=== PATIENT | male | born 1965 | race Caucasian/White ===

== ENCOUNTER 2017-11-12 14:28 | Emergency (ER) | payer SELFPAY ==
[~2017-11-12] VITALS: Ht 172.7 cm; Wt 77.5 kg
[2017-11-12] MEDS ORDERED: SODIUM CHLORIDE 0.9% 1,000 ML IV ONE (15:04)
[2017-11-12] MEDS ORDERED: ONDANSETRON HCL 4MG/2ML VIAL IV STA (15:04)
[2017-11-12] MEDS ORDERED: MECLIZINE 25MG TABLET PO ONE (15:15)
[2017-11-12 16:14] LABS: CHLORIDE 106 mEq/L (98-107)
[2017-11-12 16:16] LABS: BASOPHILS % 0.7 % (0.0-2.0); EOSINOPHILS % 0.6 % (0.0-5.0); HEMATOCRIT. 43.4 % (42.0-52.0); HEMOGLOBIN. 15.4 g/dL (14.0-18.0); LYMPHOCYTES % 23.4 % (20.0-50.0); MEAN CORPUSCULAR HEMOGLOBIN 31.4 pg (28.0-32.0); MEAN CORPUSCULAR VOLUME 88.5 fL (80.0-94.0); MEAN PLATELET VOLUME 10.1 fl (7.4-10.4); MONOCYTES % 4.7 % (2.0-8.0); NEUTROPHILS % 70.6 % (40.0-76.0); PLATELET 186 x1000/uL (130-400); RED CELL DISTRIBUTION WIDTH 13.5 % (11.6-14.6)
[2017-11-12 16:17] LABS: PROTHROMBIN TIME 10.4 sec (9.1-11.1)
[2017-11-12 16:18] LABS: ETHANOL BLOOD < 10 mg/dL
[2017-11-12 16:24] LABS: PARTIAL THROMBOPLASTIN TIME < 20.0 sec (23.4-31.0)
[2017-11-12 17:06] VITALS: BP 115/78
== END 2017-11-12 17:12 | disposition home or self-care (01) ==
LOC: ER 14:46
DX: R42 Dizziness and giddiness (principal); R11.2 Nausea with vomiting, unspecified; R53.1 Weakness; Z88.0 Allergy status to penicillin; Z88.2 Allergy status to sulfonamides
CPT/HCPCS: 36415; 70450; 71045; 80053; 83880; 84484; 85025; 85610; 85730; 93005; 96361; 96374; 99285; G0482; J2405; J7030; J8597